=== PATIENT | female | born 1990 | race Caucasian/White ===

== ENCOUNTER 2023-01-21 10:43 | Outpatient (CLI) | payer BC, SELFPAY ==
[2023-01-21 11:21] LABS: Hematocrit 29.6 % (37.0-47.0); Hemoglobin 8.2 g/dL (12.0-15.0); Mean Corpuscular HGB Conc 27.7 g/dl (32-36); Mean Corpuscular Hemoglobin 21.7 pg (26-34); Mean Corpuscular Volume 78.3 fl (80-100); Mean Platelet Volume 8.6 fl (7.4-10.4); Platelet Count Result 608 k/mm3 (150-375); Red Blood Count 3.78 M/mm3 (4.2-5.4); Red Cell Distribution Width 17.5 % (11.5-14.5); White Blood Count 8.9 K/mm3 (4.5-10.0)
[2023-01-21 11:33] LABS: Alanine Aminotransferase 20 U/L (6-35); Albumin Level 4.8 g/dL (3.5-5.1); Alkaline Phosphatase 58 U/L (38-126); Anion Gap 8 mmol/L (8-16); Aspartate Amino Transferase 26 U/L (14-36); Bilirubin,Total 0.3 mg/dL (0.2-1.3); Blood Urea Nitrogen 8 mg/dL (7-17); CRP < 0.5 mg/dL (<1.0); Calcium 9.3 mg/dL (8.4-10.2); Carbon Dioxide 26 mmol/L (22-30); Chloride 107 mmol/L (98-107); Estimated Glomerular Filt Rate > 60; Glucose 84 mg/dL (65-110); Potassium 3.6 mmol/L (3.4-5.0); Sodium 141 mmol/L (137-145)
[2023-01-21 11:51] LABS: Iron 14 ug/dL (37-170)
[2023-01-21 11:52] LABS: Erythrocyte Sedimentation Rate 21 mm/hr (0-20)
[2023-01-21 12:01] LABS: Percent Iron Saturation 3 % (20-50)
[2023-01-21 12:24] LABS: Hepatitis B Surface Antigen Negative (Negative)
[2023-01-21 12:27] LABS: Ferritin 4.07 ng/mL (6.24-137)
[2023-01-21 12:35] LABS: Folic Acid 9.9 ng/mL (2.76->20)
[2023-01-21 12:41] LABS: Hepatitis B Surface Anti Res Negative
[2023-01-23 12:34] LABS: Hepatitis A Antibody Total Nonreactive (Nonreactive); Hepatitis B Core Ab Total Nonreactive (Nonreactive)
[2023-01-23 13:53] LABS: NIL 0.02 IU/mL; Quantiferon TB Plus, 1T NEGATIVE (NEGATIVE)
== END 2023-01-21 10:44 | disposition home or self-care (01) ==
PROVIDERS: PCP Nurse Practitioner Family; Visit Provider Nurse Practitioner
DX: D50.9 Iron deficiency anemia, unspecified (principal); K51.50 Left sided colitis without complications; Z79.899 Other long term (current) drug therapy
CPT/HCPCS: 36415; 80053; 82607; 82728; 82746; 83540; 83550; 85027; 85652; 86140; 86480; 86704; 86706; 86708; 87340

== ENCOUNTER 2023-01-25 10:13 | Outpatient (CLI) | payer BC, SELFPAY ==
[2023-02-01 02:31] LABS: Calprotectin, Stool 326 mcg/g
== END 2023-01-25 10:14 | disposition home or self-care (01) ==
PROVIDERS: PCP Nurse Practitioner Family; Visit Provider Nurse Practitioner
DX: D50.9 Iron deficiency anemia, unspecified (principal); K51.50 Left sided colitis without complications; Z79.899 Other long term (current) drug therapy
CPT/HCPCS: 83993